=== PATIENT | male | born 1945 | race Caucasian/White ===

== ENCOUNTER 2017-07-24 11:20 | Observation (INO) | payer MEDICARE, OTHER ==
[2017-07-24] MEDS ORDERED: methylPREDNISolone Sod Succ/PF 125 MG/2 ML VIAL ONE (12:02)
[2017-07-24 12:09] LABS: #Basophils 0.2 thou/uL (0.0-0.2); #Eosinphils 0.2 thou/uL (0.0-0.7); #Monocytes 1.2 thou/uL (0.11-0.59); #Neutrophils 5.8 thou/uL (1.40-6.50); %Basophils 1.8 % (0.0-1.0); %Eosinophils 2.4 % (0.0-10.0); %Lymphocytes 11.9 % (21.0-51.0); %Monocytes 14.7 % (0.0-10.0); %Neutrophils 69.1 % (42.0-75.0); Hemoglobin 13.6 g/dL (14.0-18.0); Mean Corpuscular HGB CONC 32.8 g/dL (32.0-36.0); Mean Corpuscular Volume 88.4 fl (80.0-94.0); Mean Platelet Volume 5.9 fL (7.4-10.4); Platelet Count 184 thou/uL (130-400); RBC Distribution Width 13.6 % (11.5-14.5); Red Blood Cell (RBC) Count 4.67 mill/uL (4.70-6.10); White Blood Cell (WBC) Count 8.3 thou/uL (4.8-10.8)
[2017-07-24 12:24] LABS: ALT (SGPT) 27 U/L (8-55); AST (SGOT) 37 U/L (5-34); Albumin 3.9 g/dL (3.4-4.8); Alkaline Phosphatase 59 U/L (40-150); Anion Gap 17 mmol/L (10-20); BUN (Urea Nitrogen) 13 mg/dL (8.4-25.7); Bilirubin, Total 0.3 mg/dL (0.2-1.2); CK (CPK) 173 U/L (30-200); Calc. Creatinine Clearance 0 mL/min (70-130); Calcium 9.2 mg/dL (7.8-10.44); Carbon Dioxide 26 mmol/L (23-31); Chloride 102 mmol/L (98-107); Estimated GFR-MDRD Greater than 90; Globulin 3.3 g/dL (2.4-3.5); Glucose 98 mg/dL (83-110); Potassium 3.7 mmol/L (3.5-5.1); Protein, Total 7.2 g/dL (5.8-8.1); Sodium 141 mmol/L (136-145)
[2017-07-24 12:25] LABS: CKMB 1.5 ng/mL (0-6.6)
--- NOTE | 2017-07-24 14:09 | RAD ---
PA AND LATERAL CHEST: Date: 07/24/17 HISTORY: Dyspnea. Fever at home. FINDINGS: Comparison made to previous exam from 08/08/09. Two views of chest demonstrate area of elevation of the left hemidiaphragm, unchanged since the previ ous comparison exam. Some areas of scar seen in the right lung base. Mild pulmonary vascular congesti on seen. No acute intrathoracic abnormalities noted. IMPRESSION: Elevated left hemidiaphragm. Otherwise unremarkable 2 views chest with areas of scarring seen in the right lung base. POS: [facility]
[2017-07-24] MEDS ORDERED: Acetaminophen 325 MG TAB PO PRN (15:58)
[2017-07-24] MEDS ORDERED: Ondansetron HCl/PF 4 MG/2 ML Vial IVP PRN (15:58)
[2017-07-24] MEDS ORDERED: Ondansetron ODT 4 MG TAB SL PRN (15:58)
[2017-07-24] MEDS ORDERED: Aspirin 325 mg Enteric Coated Tablet PO SCH (16:00)
[2017-07-24 16:14] VITALS: BMI 38.5
[2017-07-24] MEDS ORDERED: hydrALAZINE 25 MG TAB PO PRN (16:55)
[2017-07-24] MEDS: Sodium Chloride 0.9% 1,000 ML IV SCH (17:34)
[2017-07-24 17:38] LABS: CKMB 2.2 ng/mL (0-6.6); Troponin I Less than 0.010 ng/mL (< 0.028)
[2017-07-24] MEDS ORDERED: Non-Formulary Item 1 EACH (Budesonide-Formoterol [Symbicort 160-4.5] 2 PUFF) INH SCH (18:30)
--- NOTE | 2017-07-24 18:47 | HP ---
PRIMARY CARE PHYSICIAN: Dr. Brock Tiwari. DATE OF ADMISSION: 07/24/2017 CHIEF COMPLAINT: Cough, shortness of breath, and weakness. HISTORY OF PRESENT ILLNESS: This is a 72-year-old gentleman, a patient of Dr. Brock Tiwari with a histo ry of COPD, coronary artery disease, myasthenia gravis, who presents to the Emergency Department with feeling worse over the past week. The patient states that about 3 or 4 days ago, he developed worse mitchell of his cough that seem different from his typical bronchitis, COPD exacerbation. Two days ago, he developed increased body aches, body pains, muscle aches, malaise and 2 days ago, developed a feve r up to 101 with chills. He started his usual regimen of taking oral Ceftin 3-4 days ago with no rel ief. He admits to decreased appetite, but no nausea, vomiting, diarrhea, no falling at home, no sync ope, but admits to increased dyspnea on exertion. He presented to the Emergency Department today and was found to be hypoxic with a pulse ox down to 80% with activity. He had a positive flu swab, now being admitted for fluid dehydration as well as mild exacerbation of his COPD. PAST MEDICAL HISTORY: 1. COPD, followed by Dr. Todd. 2. Myasthenia gravis followed by Dr. Munoz 3. Coronary artery disease followed by Dr. Lopes. 4. Chronic edema. 5. Hypothyroidism. 6. Hyperlipidemia. PAST SURGICAL HISTORY: Nasal polyp, sinus surgery, foot surgery. MEDICATIONS: Include, aspirin 81 mg daily, Crestor 20 mg daily, levothyroxine 75 mcg daily, metoprol ol 20 mg daily, prednisone 5 mg b.i.d., Mestinon 90 mg t.i.d., Protonix 40 mg b.i.d., Symbicort 2 puf fs b.i.d., Combivent as needed, and Ceftin as needed. ALLERGIES: Include LEVAQUIN and PENICILLIN. SOCIAL HISTORY: A former smoker, quit over 20 years ago, but smoked for over 25 years. Denies alcoh ol or illicit drug use. He is , retired. FAMILY HISTORY: Multiple family members with coronary artery disease and diabetes. REVIEW OF SYSTEMS: As per the history of present illness. GENERAL: He denies any recent illness prior to 3-4 days ago. HEENT: Denies headache, visual or hearing changes. CARDIOVASCULAR: Denies chest pain. Positive for shortness of breath, no palpitations. PULMONARY: Positive cough. Positive chest congestion. Denies hemoptysis. GASTROINTESTINAL: Denies nausea, vomiting, abdominal pain, melena, hematochezia. GENITOURINARY: Denies dysuria or hematuria. NEUROLOGIC: Positive weakness. No seizures or syncope. MUSCULOSKELETAL: Occasional joint pains. PHYSICAL EXAMINATION: VITAL SIGNS: Temperature 99.0, pulse of 98, respirations 20, pulse ox 93% to 95% on 2 liters, and bl ood pressure 170/90. GENERAL: He is awake and alert, in no acute distress. No conversational dyspnea. NECK: Supple. Mucosa is dry. HEART: Regular rate and rhythm. LUNGS: With scattered rhonchi bilaterally with expiratory wheezes. ABDOMEN: Obese, soft, nontender, nondistended. EXTREMITIES: With 2-3+ edema with chronic venous stasis changes with ulcerations, some redness but n o sign of acute cellulitis. NEUROLOGIC: Cranial nerves II through XII are grossly intact. Strength is 5/5 bilaterally. LABORATORY DATA: White blood cell count 8.3000, hemoglobin and hematocrit 13.6 and 41.3, platelets o f 184. Sodium 141, potassium 3.7, chloride 102, CO2 of 26. BUN and creatinine 13 and 0.72. Serum g lucose is 98. GFR greater than 90. AST and ALT are normal. CPK was normal. Troponin I was indeter minate 0.030. BNP was less than 10. X-RAY FINDINGS: Chest x-ray revealed elevated left hemidiaphragm, scarring in the right lung base, b ut otherwise no acute infiltrate. ASSESSMENT AND PLAN: This is a 72-year-old gentleman with multiple medical problems including myasth enia gravis, chronic obstructive pulmonary disease, coronary artery disease, now with acute viral ill ness consistent with influenza type A, now with positive flu test. 1. Influenza type A. We will start Tamiflu 75 mg b.i.d. 2. Dehydration. We will start IV fluid management, try to push his fluids. 3. Chronic obstructive pulmonary disease. I will continue steroids, nebulizer treatments, as well a s oxygen therapy. 4. Coronary artery disease, stable. We will continue his aspirin and Crestor. 5. Hypertension. We will monitor closely. We will continue metoprolol and start hydralazine p.r.n. 6. Disposition: Hope for a short hospital stay. Once he is improving, hopefully discharge home zulma uriah.
[2017-07-24] MEDS: guaiFENesin ER 600 MG TAB PO SCH (20:25)
[2017-07-24] MEDS: Oseltamivir 75 MG CAP PO SCH (20:25)
[2017-07-24] MEDS: Pyridostigmine Bromide IR 60 MG TAB PO SCH (23:51)
[2017-07-25] MEDS: Sodium Chloride 0.9% 1,000 ML IV SCH (03:50)
[2017-07-25 05:04] LABS: #Lymphocytes 0.4 thou/uL (1.20-3.40); #Monocytes 0.2 thou/uL (0.11-0.59); #Neutrophils 3.4 thou/uL (1.40-6.50); %Eosinophils 0.3 % (0.0-10.0); %Lymphocytes 10.1 % (21.0-51.0); %Monocytes 4.4 % (0.0-10.0); %Neutrophils 85.1 % (42.0-75.0); Hemoglobin 13.1 g/dL (14.0-18.0); Mean Corpuscular HGB CONC 31.8 g/dL (32.0-36.0); Mean Corpuscular Hemoglobin 29.5 pg (27.0-31.0); Mean Corpuscular Volume 92.8 fl (80.0-94.0); Mean Platelet Volume 6.5 fL (7.4-10.4); Platelet Count 199 thou/uL (130-400); RBC Distribution Width 13.6 % (11.5-14.5); Red Blood Cell (RBC) Count 4.46 mill/uL (4.70-6.10)
[2017-07-25 05:18] LABS: Anion Gap 10 mmol/L (10-20); BUN (Urea Nitrogen) 14 mg/dL (8.4-25.7); Calc. Creatinine Clearance 192 mL/min (70-130); Calcium 8.7 mg/dL (7.8-10.44); Carbon Dioxide 31 mmol/L (23-31); Chloride 102 mmol/L (98-107); Estimated GFR-MDRD Greater than 90; Glucose 127 mg/dL (83-110); Sodium 139 mmol/L (136-145)
[2017-07-25] MEDS ORDERED: Levothyroxine Sodium 75 MCG TAB PO SCH (06:00)
[2017-07-25] MEDS: guaiFENesin ER 600 MG TAB PO SCH (08:03)
[2017-07-25] MEDS: Oseltamivir 75 MG CAP PO SCH (08:03)
[2017-07-25] MEDS: Pyridostigmine Bromide IR 60 MG TAB PO SCH (08:04)
[2017-07-25 09:00] VITALS: BP 146/78; TEMP 97.6
[2017-07-25] MEDS ORDERED: Metoprolol Tartrate 25 MG TAB PO SCH (09:00)
--- NOTE | 2017-07-25 17:00 | DIS ---
DATE OF ADMISSION: 07/24/2017 DATE OF DISCHARGE: 07/25/2017 ADMISSION DIAGNOSES: 1. Influenza. 2. Dehydration. 3. Chronic obstructive pulmonary disease. 4. Coronary artery disease with slightly elevated troponin. DISCHARGE DIAGNOSES: 1. Dehydration, resolved. 2. Influenza, stable. 3. Chronic obstructive pulmonary disease at his baseline. PROCEDURES: Telemetry monitoring rule out myocardial infarction protocol, chest x-ray, Tamiflu thera py. HOSPITAL COURSE: This is a 72-year-old gentleman with a history of COPD, coronary artery disease, an d with myasthenia gravis, who presented to the emergency department with worsening cough, malaise, an d fever over the past week. He presented to the emergency department, was hypoxic with a pulse ox do wn to 80% with walking around. He has a positive flu swab. He was started on Tamiflu, as well as IV fluid rehydration, steroids, and neb treatments. He improved during his hospitalization. He feels much better, close to his baseline. His lung exam improved and he was able to walk to the bathroom w ith less difficulty. He is tolerating the Tamiflu, taking fluids well now, and stable for discharge. DISCHARGE PHYSICAL EXAMINATION: VITAL SIGNS: Temperature 97.6, T-max of 99, pulse of 78, respirations 18, blood pressure 146/78, pul se ox is 91% on 3 liters. GENERAL: He is awake and alert. No conversational dyspnea. NECK: Supple. HEART: Regular rate and rhythm. LUNGS: With distant breath sounds, occasional wheezes but no rhonchi. ABDOMEN: Obese. EXTREMITIES: With 1-2+ edema, but he states that is his baseline. LABORATORY DATA: Troponin I less than 0.01. BNP was less than 10. Sodium 139, potassium 4.0, chlor shanna 102, CO2 of 31, BUN and creatinine 14 and 0.6, serum glucose of 127. White blood cell count 4.0, hemoglobin and hematocrit 13.1 and 41.4, platelets of 199. DISCHARGE MEDICATIONS: Include DuoNeb p.r.n., Mucinex 600 mg q.12 hours, hydralazine 25 mg q.i.d. p. r.n., levothyroxine 75 mcg daily, a steroid taper, Lopressor 25 mg daily, Tamiflu 75 mg b.i.d. for 4 more days, Protonix 40 mg daily, Mestinon 90 mg t.i.d., Symbicort b.i.d. FOLLOWUP INSTRUCTIONS: The patient to follow up with Dr. Tiwari in 1-2 weeks.
--- NOTE | 2017-09-11 18:24 | EKG ---
Test Reason : Blood Pressure : / mmHG Vent. Rate : 106 BPM Atrial Rate : 106 BPM P-R Int : 164 ms QRS Dur : 094 ms QT Int : 334 ms P-R-T Axes : 024 012 115 degrees QTc Int : 443 ms Sinus tachycardia Abnormal ECG Confirmed by YU DUFFY ([id number]), staff editor EMELI AUSTIN ([id number]) on 09/11/2017 6:23:55 PM Referred By: Confirmed By:YU DUFFY
== END 2017-07-25 12:17 | disposition home or self-care (01) ==
LOC: SCSER 11:20 → UNDOADMOB 15:59 → 2SW 15:59 → UNDODISOB 07-25 12:17
PROVIDERS: ADMIT Family Medicine; ATTEND Family Medicine
DX: E86.0 Dehydration (principal); J44.9 Chronic obstructive pulmonary disease, unspecified; I25.10 Atherosclerotic heart disease of native coronary artery without angina pectoris; G70.00 Myasthenia gravis without (acute) exacerbation; R60.9 Edema, unspecified; E03.9 Hypothyroidism, unspecified; E78.5 Hyperlipidemia, unspecified; I10 Essential (primary) hypertension; J09.X2 Influenza due to identified novel influenza A virus with other respiratory manifestations; Z79.51 Long term (current) use of inhaled steroids; Z79.52 Long term (current) use of systemic steroids; Z79.899 Other long term (current) drug therapy; Z88.1 Allergy status to other antibiotic agents; Z88.0 Allergy status to penicillin; Z98.890 Other specified postprocedural states; Z87.891 Personal history of nicotine dependence
CPT/HCPCS: 71020; 80048; 80053; 82550; 82553 ×2; 83605; 83880; 84484 ×2; 85025 ×2; 87040; 87804 ×2; 93005; 93306; 94640 ×2; 94760; 96361 ×3; 96374; 96376 ×2; 99285; G0378; 36415; J2920; J2930; J7620

== ENCOUNTER 2018-09-20 07:01 | Outpatient (CLI) | payer MEDICARE, OTHER ==
--- NOTE | 2018-09-20 08:25 | ULT ---
ABDOMINAL AORTIC ULTRASOUND: TECHNIQUE: Multiplanar, dutton scale, and color Doppler images were obtained in a limited ultrasound of the abdomi nal aorta. Spectral analysis of the Doppler waveforms of the aorta and common iliac arteries was per formed. FINDINGS: The aorta is normal in caliber without significant atherosclerotic disease. The aorta measures 2.5 c m in greatest dimension proximally. No aneurysmal dilatation of the common iliac arteries is seen. The waveforms and aorta and iliac arteries are normal. IMPRESSION: No evidence of abdominal aortic aneurysm. POS: [facility]
== END 2018-09-20 07:02 | disposition home or self-care (01) ==
LOC: SCSULT 07:01
PROVIDERS: ATTEND Family Medicine
DX: Z13.6 Encounter for screening for cardiovascular disorders (principal)
CPT/HCPCS: 76706; 76775

== ENCOUNTER 2019-06-30 14:12 | Emergency (ER) | payer MEDICARE, OTHER ==
[2019-06-30] MEDS ORDERED: Ondansetron PF 4 MG/2 ML Vial ONE (14:50)
[2019-06-30 15:03] LABS: Hemoglobin 9.5 g/dL (14.0-18.0); Mean Corpuscular HGB CONC 26.8 g/dL (32.0-36.0); Mean Corpuscular Hemoglobin 19.4 pg (27.0-31.0); Mean Corpuscular Volume 72.4 fL (78.0-98.0); Mean Platelet Volume 6.3 fL (7.4-10.4); Platelet Count 312 thou/uL (130-400); RBC Distribution Width 18.1 % (11.5-14.5); Red Blood Cell (RBC) Count 4.89 mill/uL (4.70-6.10); White Blood Cell (WBC) Count 13.2 thou/uL (4.8-10.8)
[2019-06-30 15:12] LABS: #Basophils 0.1 thou/uL (0.0-0.2); #Eosinphils 0.4 thou/uL (0.0-0.7); #Lymphocytes 0.6 thou/uL (1.20-3.40); #Monocytes 1.3 thou/uL (0.11-0.59); #Neutrophils 10.8 thou/uL (1.40-6.50); %Basophils 0.7 % (0.0-1.0); %Lymphocytes 4.5 % (21.0-51.0); %Neutrophils 81.7 % (42.0-75.0); Burr Cells SLIGHT = 2-5 cells (100X) (0-1/hpf); Hypochromia SLIGHT = 6-15 cells (100X) (0-5/hpf); MDiff Complete? YES; Microcytosis SLIGHT = 6-15 cells (100X) (0-5/hpf); Ovalocytes SLIGHT = 2-5 cells (100X) (0-1/hpf); Platelet Morphology Comment Appears Adequate; Polychromasia SLIGHT = 2-3 cells (100X) (0-2/hpf)
[2019-06-30 15:18] LABS: ALT (SGPT) 17 U/L (8-55); AST (SGOT) 20 U/L (5-34); Albumin 3.7 g/dL (3.4-4.8); Alkaline Phosphatase 70 U/L (40-110); Anion Gap 13 mmol/L (10-20); BUN (Urea Nitrogen) 16 mg/dL (8.4-25.7); Bilirubin, Total 0.6 mg/dL (0.2-1.2); Calc. Creatinine Clearance 0 mL/min (70-130); Calcium 8.9 mg/dL (7.8-10.44); Carbon Dioxide 34 mmol/L (23-31); Chloride 102 mmol/L (98-107); Estimated GFR-MDRD Greater than 90; Globulin 3.1 g/dL (2.4-3.5); Glucose 96 mg/dL (83-110); Lipase 26 U/L (8-78); Potassium 3.7 mmol/L (3.5-5.1); Protein, Total 6.8 g/dL (5.8-8.1); Sodium 145 mmol/L (136-145)
--- NOTE | 2019-06-30 15:18 | RAD ---
PORTABLE CHEST: INDICATION: Cough. COMPARISON: 10/22/2015. FINDINGS: Bibasilar infiltrates and/or atelectasis. I cannot exclude small effusions. There is cardiomegaly. Vascular markings within normal range. IMPRESSION: Bibasilar atelectasis and/or infiltrates. Consider upright PA and lateral views for better evaluatio n. POS: [facility]
--- NOTE | 2019-06-30 16:49 | RAD ---
RADIOGRAPH CHEST 2 VIEW: DATE: 06/30/2019 TIME: 4:25 PM HISTORY: 74-year-old male with cough COMPARISON: 07/23/2017 FINDINGS: No interval change in the dense opacification at the left base, silhouetting the left heart border on the frontal view. CT of abdomen of 10/18/2015 shows that this represents a combination of elevated left hemidiaphragm and large left paracardial fat pad. Likewise, streaky density mildly partially johnnie vating right cardiac border represents pulmonary scar, unchanged. Lateral view demonstrates no pleural effusion. Cardiac shadow is obscured by the findings described above. The upper lung zones de monstrate no consolidation. No pneumothorax. No interval change overall. IMPRESSION: 1) no acute findings. 2) no interval change compared to 07/24/2017. 3) chronic changes at bilateral lung bases as described above.
== END 2019-06-30 16:57 | disposition home or self-care (01) ==
LOC: SCSER 14:12
DX: R11.2 Nausea with vomiting, unspecified (principal); R19.7 Diarrhea, unspecified; I25.10 Atherosclerotic heart disease of native coronary artery without angina pectoris; I10 Essential (primary) hypertension; J44.9 Chronic obstructive pulmonary disease, unspecified; E03.9 Hypothyroidism, unspecified; E78.00 Pure hypercholesterolemia, unspecified; I25.2 Old myocardial infarction; Z87.891 Personal history of nicotine dependence; Z79.82 Long term (current) use of aspirin; Z79.899 Other long term (current) drug therapy; Z79.51 Long term (current) use of inhaled steroids; Z79.52 Long term (current) use of systemic steroids
CPT/HCPCS: 71045; 71046; 80053; 83690; 83735; 84484; 85025; 93005; 94760; 96361; 96374; J2405

== ENCOUNTER 2020-03-27 04:35 | Emergency (ER) | payer MEDICARE, OTHER ==
[2020-03-27] MEDS ORDERED: EPINEPHrine 4 MG in Dextrose 5% in Water 250 ML IV SCH (05:15)
[2020-03-27] MEDS ORDERED: Sodium Bicarb 50 MEQ/50 ML Abboject 8.4% SYRINGE ONE ×3 (05:18→09:01)
[2020-03-27 05:33] LABS: INR-International Normal Ratio 1.5; PTT 43.4 sec (22.9-36.1); Prothrombin Time 17.8 sec (12.0-14.7)
[2020-03-27 05:52] LABS: ALT (SGPT) 82 U/L (8-55); AST (SGOT) 48 U/L (5-34); Albumin 2.6 g/dL (3.4-4.8); Alkaline Phosphatase 83 U/L (40-110); Anion Gap 20 mmol/L (10-20); BUN (Urea Nitrogen) 22 mg/dL (8.4-25.7); Bilirubin, Total 0.3 mg/dL (0.2-1.2); Calc. Creatinine Clearance 0 mL/min (70-130); Calcium 10.3 mg/dL (7.8-10.44); Carbon Dioxide 36 mmol/L (23-31); Chloride 98 mmol/L (98-107); Estimated GFR-MDRD Greater than 90; Globulin 1.8 g/dL (2.4-3.5); Glucose 97 mg/dL (83-110); Potassium 5.5 mmol/L (3.5-5.1); Protein, Total 4.4 g/dL (5.8-8.1); Sodium 148 mmol/L (136-145)
[2020-03-27 05:55] LABS: D-Dimer Test Greater than 20.00 *mcg/mL (0.27-0.43)
[2020-03-27 06:19] LABS: Band 4 % (5-11); Eosinophils 2 % (0-10); Hemoglobin 8.6 g/dL (14.0-18.0); Hypochromia MODERATE=16-30 cells (100X) (0-5/hpf); Lymphocytes 20 % (21-51); MDiff Complete? YES; Mean Corpuscular HGB CONC 25.9 g/dL (32.0-36.0); Mean Corpuscular Hemoglobin 20.4 pg (27.0-31.0); Mean Corpuscular Volume 78.9 fL (78.0-98.0); Mean Platelet Volume 5.7 fL (7.4-10.4); Monocytes 8 % (0-10); Neutrophil 66 % (42-75); Nucleated RBC 1 % (0); Platelet Count 147 thou/uL (130-400); Platelet Morphology Comment Appears Adequate; RBC Distribution Width 21.4 % (11.5-14.5); Reflex for Review?? YES; White Blood Cell (WBC) Count 14.1 thou/uL (4.8-10.8)
--- NOTE | 2020-03-27 07:44 | RAD ---
CHEST 1 VIEW: HISTORY: Intubation. Respiratory distress. CPR in progress. Comparison: 03/15/2020, 03/20/2020. FINDINGS: Cardiac silhouette:Cardiomegaly. Lines and tubes: Endotracheal tube appears to be at the level of abby. Nasogastric tube terminates in the left upper quadrant. Aorta: Slightly elongated. Pulmonary vessels: Normal. Costophrenic angles: Bilateral pleural effusions. Lungs: Bilateral perihilar alveolar opacities. Pneumothorax: None. Osseous abnormalities: None. IMPRESSION: 1. Congestive heart failure is suspected. Superimposed pneumonia and/or aspiration cannot be excluded . 2. Endotracheal and nasogastric tube as above. Need to reposition the endotracheal tube is recommende d. Results of the study conveyed to charge nurse, Bennie, 03/27/2020 at 7:43 AM. Code CR Transcribed Date/Time: 03/27/2020 8:25 AM
[2020-03-27] MEDS ORDERED: EPINEPHrine 1 MG/10 ML Abboject SYRINGE ONE ×3 (09:01)
[2020-03-27] MEDS ORDERED: Calcium Chloride 1 GM/10 ML Abboject SYRINGE ONE (09:01)
--- NOTE | 2020-03-30 11:55 | EKG ---
Test Reason : Blood Pressure : / mmHG Vent. Rate : 153 BPM Atrial Rate : 170 BPM P-R Int : 000 ms QRS Dur : 126 ms QT Int : 312 ms P-R-T Axes : 000 060 027 degrees QTc Int : 498 ms Atrial fibrillation with rapid ventricular response Non-specific intra-ventricular conduction block Inferior infarct , possibly acute Anterolateral injury pattern Abnormal ECG Confirmed by RICKY GUAMAN ([id number]), associate editor HANNAH MARROQUIN ([id number]) on 03/30/2020 11:55:08 AM Referred By: Confirmed By:RICKY GUAMAN
== END 2020-03-27 05:34 | disposition expired ==
LOC: ERS 04:35
DX: I46.9 Cardiac arrest, cause unspecified (principal); I25.10 Atherosclerotic heart disease of native coronary artery without angina pectoris; I10 Essential (primary) hypertension; J44.9 Chronic obstructive pulmonary disease, unspecified; E03.9 Hypothyroidism, unspecified; E78.5 Hyperlipidemia, unspecified; Z87.891 Personal history of nicotine dependence
CPT/HCPCS: 31500; 36556; 51702; 71045; 80053; 83605; 83880; 84443; 84484; 85025; 85060; 85379; 85610; 85730; 87040; 92950; 93005; 96374; 96375; 96376; J0171; J7070